=== PATIENT | female | born 1990 | race Two or more races ===

== ENCOUNTER 2024-05-26 11:54 | Emergency (ER) | payer MEDICAID ==
[~2024-05-26] VITALS: Ht 165.1 cm; Wt 68.2 kg
[2024-05-26 12:03] VITALS: TEMP 98.2
[2024-05-26 13:18] LABS: BASOPHILS % (AUTO) 0.7 % (0.0-2.0); HEMATOCRIT 44.3 % (36-46); HEMOGLOBIN 14.5 g/dL (12.0-16.0); LYMPHOCYTES # (AUTO) 2.2 K/uL (1.0-4.8); LYMPHOCYTES % (AUTO) 31.5 % (22.0-44.0); MEAN CORPUSCULAR HEMOGLOBIN 28.9 pg (26.0-34.0); MEAN CORPUSCULAR HGB CONC 32.9 G/dL (31.0-37.0); MEAN CORPUSCULAR VOLUME 88 fL (80-100); MONOCYTES # (AUTO) 0.5 K/uL (0.1-1.0); MONOCYTES % (AUTO) 7.3 % (2.0-9.0); NEUTROPHILS % (AUTO) 57.5 % (40.0-70.0); PLATELET COUNT (AUTO) 293 K/uL (150-450); RED BLOOD CELL COUNT(AUTO) 5.03 MIL/uL (4.00-5.20); RED CELL DISTRIBUTION WIDTH 13.2 % (11.5-14.5); WHITE BLOOD COUNT (AUTO) 6.9 K/uL (4.5-11.0)
[2024-05-26 13:27] LABS: ANION GAP 8 mmol/L (8-16); CALCIUM, TOTAL 8.9 mg/dL (8.8-10.5); CARBON DIOXIDE 28 mmol/L (22-29); CHLORIDE 102 mmol/L (98-107); CREATININE 0.74 mg/dL (0.60-1.30); GLOMERULAR FILTR. RATE CALC > 60 mL/min (>60); GLUCOSE,RANDOM 85 mg/dL (70-110); POTASSIUM 3.9 mmol/L (3.5-5.1); SODIUM SERUM 137 mmol/L (136-145); UREA NITROGEN, BLOOD 14 mg/dL (7-18)
[2024-05-26 13:45] VITALS: BP 115/65; PULSE 64; RESP 17; O2SAT 98
== END 2024-05-26 14:37 | disposition home or self-care (01) ==
LOC: EMS 11:54
DX: E04.1 Nontoxic single thyroid nodule (principal); Z87.891 Personal history of nicotine dependence
CPT/HCPCS: 80048; 84703; 85025; 99283

== ENCOUNTER 2024-07-26 08:54 | Emergency (ER) | payer MEDICAID ==
[~2024-07-26] VITALS: Ht 154.9 cm; Wt 60.0 kg
[2024-07-26 09:03] VITALS: TEMP 98.4
[2024-07-26] MEDS ORDERED: IBUP-1554 PO (09:51)
[2024-07-26] MEDS ORDERED: DOXY-354 PO (09:51)
[2024-07-26 10:07] VITALS: BP 102/62; PULSE 65; RESP 18; O2SAT 99
== END 2024-07-26 10:08 | disposition home or self-care (01) ==
LOC: EMS 08:55
DX: N76.4 Abscess of vulva (principal)
CPT/HCPCS: 10160; 99284; Z7502